=== PATIENT | male | born 1970 ===

== ENCOUNTER → 2021-03-11 | Outpatient (CLI) | payer OTHER ==
[~2021-03-11] MED LIST: ACET15SO6 AS; CETI10TA16 PO; CETI5TAB4 PO; CYCL5TAB PO; DIVA-53 PO; GABA-585 PO; GLEC1TAB PO; MELO15TA23 PO; NYST15CR2 TP
--- NOTE | 2021-03-11 08:35 | PDOC1 ---
INITIAL PAIN CONSULT DATE OF SERVICE: DOS: DATE: 03/11/21 TIME: 08:28 CHIEF COMPLAINT: Chief Complaint: Low back and left lower extremity pain HISTORY OF PRESENT ILLNESS: 51-year-old male presents history of pain low back left lower extremity status post lumbar laminectomy 2015 which reports the pain was reduced but never completely resolved has had pain since that time in the low back left lower extremity posterior gluteus posterior thigh lateral thigh anterior thigh medial thigh as well as the posterior calf to the ankle but not into the foot patient reports is worse with walking standing changing positions better with sitting or laying down but wakes him up from sleep about 3-4 times at night. Patient reports it does not affect his bowel bladder control does affect his ability to walk and he has been limping favoring his left lower extremity. Patient is active currently in custody and reports that it does affect his daily activities his work assignments as well because of the walking with his left hand patient does not use any assistive device such as canes or crutches at this time. Patient did have physical therapy in 2015 and 2014 just before the surgery he had a MRI scan from that time as well showing a large herniation at L4-5 and then plain films dated October 12, 2019 showing significant narrowing at the L4-5 level worsened compared to prior exam with moderate narrowing L2-3 and L3-4 levels with mild to moderate narrowing at the remaining levels as well. Patient rates his disability rating 0-10 10 being the worst as a 5 with him home responsibilities and social activity 8 with recreation and occupation 5 with sexual behavior to with self-care and 0 with life support activities. Patient scribes pain is constant in the back aching and sharp shooting with numbness and tingling in the left leg as described in cramping aching low back as well. PAST MEDICAL HISTORY: PMH: Arthritis, hearing loss, hepatitis PREVIOUS SURGERIES: Past Surgical Hx: Lumbar laminectomy 2016 CURRENT MEDICATIONS: Current Meds: Active Scripts Medications Dose Route/Sig Max Daily Dose Days Date Category Cetirizine Hcl 5 Mg Tab.chew 5 Mg PO DAILY 03/11/21 Reported Gabapentin (Gabapentin) 100 Mg Capsule 200 Mg PO TID 03/11/21 Reported Nystatin-Triamcinolone Cream (Nystatin/Triamcin) 15 Gm Cream..[address]. 1 Rd TP BID 03/11/21 Reported Cyclobenzaprine Hcl 5 Mg Tablet 5 Mg PO TID 03/11/21 Reported Cetirizine Hcl 10 Mg Tablet 1 Tab PO DAILY 03/11/21 Reported Acetic Acid 15 Ml Solution 4 Drop BID 7 03/11/21 Reported Mavyret 100-40 mg Tablet (Glecaprevir/Pibrentasvir) 1 Each Tablet 1 Each PO TID 03/11/21 Reported Divalproex Sodium 500 Mg Tablet.dr 250 Mg PO DAILY 03/11/21 Reported Meloxicam 15 Mg Tablet 1 Tab PO DAILY 30 03/11/21 Reported ALLERGIES; Allergies: Coded Allergies: No Known Drug Allergies (Unverified , 03/11/21) FAMILY HISTORY: Family Hx: No major medical problems that he is aware of SOCIAL HISTORY: Social Hx: Patient is nondrug alcohol does not smoke not use any illegal illicit recreational drugs is again is in custody currently REVIEW OF SYSTEMS: ROS: Positive for those items mentioned in history of present illness, all systems are reviewed, otherwise negative ,and are complete full and well-documented on patient's chart. PHYSICAL EXAM: VS: Blood pressure is 137/82 pulse 71 respirations 18 temperature 98.2 F height is 6 foot 1 inch, weight is 233 pounds PE: PHYSICAL EXAMINATION: GENERAL: The patient is awake, alert, oriented, appropriate, very pleasant demeanor HEENT: Shows normocephalic, atraumatic. Extraocular movements are intact and symmetrical. Patient wearing eyeglasses. Oral cavity: Mucous membranes moist and pink. Dentition is intact. NECK: Shows anterior throat supple without palpable lymphadenopathy noted. Swallow reflex symmetrical. CHEST: Shows normal on inspection. Breath sounds are clear bilaterally, no rales rhonchi wheezes auscultated. HEART: Shows S1, S2 clear. No murmurs auscultated. ABDOMEN: Soft, nontender, nondistended, obese. No palpable organomegaly is noted. No rebound or guarding demonstrated. BACK: Shows spine grossly in the midline. Normal-appearing cervical lordotic curvature. There is slightly increased thoracic kyphosis, some minor flattening of the lumbar lordotic curvature. Well-healed surgical scars noted in the midline. Lumbar paraspinous muscles show symmetrical on inspection, on palpation shows some moderate tenderness diffusely throughout the upper, middle and lower distribution of the paraspinous muscles bilaterally and also into the lower thoracic paraspinous musculature, firm and tender, but without specific trigger points, without radiation of pain. The patient has good rotational motion of the lumbar spine, both laterally as well as extension and flexion without significant difficulty. No tenderness over the spinous processes, sacrum or sacroiliac regions. EXTREMITIES: Lower extremities show deep tendon reflexes 1+ in the patellar and tendo calcaneus tendons. Motor exam is 5 on a scale of 5 with right dorsiflexion, extension, quadriceps and hamstring flexion and 4/5 on the left. Peripheral pulses are 1+ posterior tibial. No peripheral edema is noted bilaterally. Lower extremities are warm and dry to touch, equal in color and appearance. Straight leg raise noted to be negative on the right, left side is positive at approximately 35 degrees decreased with knee flexion. Gaenslen's and Eusebio's maneuvers are negative bilaterally as well. The patient is able to stand, stand on his toes has difficulty putting all his weight on his left foot and does have a slight favoring gait favoring the left lower extremity without using assistive devices to ambulate. SKIN: Shows warm and dry, good turgor. No edema. No sores, rashes or bruising throughout. IMPRESSION: Impression: 51-year-old male with proximate 5-year history status post lumbar laminectomy L4-5 with radicular pain persistent and partial foot drop on the left. MRI scan lumbar spine as noted Arthritis History of hepatitis Plan: Options discussed with the patient, including medical management continued physical therapy as well as interventional techniques. Patient would like to pursue interventional techniques. We discussed a lumbar transforaminal epidural injection using descriptions as well as anatomical models to describe the procedure. Patient is interested and would like to pursue this. We will wait for preauthorization with patient's insurance provider and have him return for a left-sided L4-5 level transforaminal injection with fluoroscopic guidance at that time. In the meantime, patient will continue with oral analgesics as well as anti-inflammatories and stretching strengthening exercises as currently. MARC LAYNE MD March 11, 2021 08:35
== END | disposition home or self-care (01) ==
LOC: PNCL 07:46 → EEVIPCON 08:00
PROVIDERS: ATTEND Anesthesiology
DX: M54.5 Low back pain (principal); M79.605 Pain in left leg; M19.90 Unspecified osteoarthritis, unspecified site; Z79.899 Other long term (current) drug therapy; Z98.890 Other specified postprocedural states
CPT/HCPCS: 99205; G0463

== ENCOUNTER → 2021-10-01 | Outpatient (CLI) | payer OTHER ==
[~2021-10-01] MED LIST changes: +OMEP20TA63 PO; +TAMS0.4C97 PO
--- NOTE | 2021-10-01 08:04 | PDOC ---
Progress Note - Pain Clinic Date of Service: DOS: DATE: 10/01/21 TIME: 07:58 Diagnosis: Dx: Lumbar radiculopathy lumbar degenerative disease lumbar postlaminectomy syndrome History or Present Illness: HPI: 51-year-old male status post initial evaluation March 11, 2021 returning now with similar complaints in the low back and left lower extremity patient reports his pain is getting worse in the left side posterior gluteus posterior thigh lateral thigh anterior thigh medial thigh medial lower leg and into the posterior calf as well with some foot drop on the left side with walking patient reports it is constant shooting throbbing stabbing tingling with numbness in the leg aching and cramping in the back as well worse with walking standing changing positions wakes him from sleep least 2-6 times a night does not affect his bowel bladder control does affect his ability walk is not using assistive devices currently patient is had physical therapy in the past which was helpful but only very temporarily patient has been doing some traction as well which is helpful and doing some stretching strengthening on his own patient reports his most noticeable with bending down picking up items and trying to stand back up also with standing and walking becoming more more difficult and uncomfortable. Patient reports no loss of motor function with significant fatigability the left leg as well as foot drop on the left side with walking patient rates disability rating 0-10 10 being the worst is a 6 with family home responsibilities social activity sexual behavior 7 with recreation and occupation for self-care and 0 with life support activities except for sleeping. Patient reports no bowel or bladder incontinence Physical Exam: VS: Blood pressure is 129/87 pulse 76 respirations 16 temperature 98.2 F height is 6 foot 2 inches weight is 235 pounds. PE: PHYSICAL EXAMINATION: GENERAL: The patient is awake, alert, oriented, appropriate, very pleasant in demeanor HEENT: Shows normocephalic, atraumatic. Extraocular movements are intact and symmetrical. Oral cavity: Mucous membranes moist and pink. Dentition is intact. NECK: Shows anterior throat supple without palpable lymphadenopathy noted. Swallow reflex symmetrical. CHEST: Shows normal on inspection. Breath sounds are clear bilaterally, no rales or rhonchi. HEART: Shows S1, S2 clear. No murmurs auscultated. ABDOMEN: Soft, nontender, nondistended, obese. No palpable organomegaly is noted. BACK: Shows spine grossly in the midline. Normal-appearing cervical lordotic curvature. There is slightly increased thoracic kyphosis, some minor flattening of the lumbar lordotic curvature. Lumbar paraspinous muscles show symmetrical on inspection, on palpation shows some moderate tenderness diffusely throughout the upper, middle and lower distribution of the paraspinous muscles, but without specific trigger points, without radiation of pain. The patient has good rotational motion of the lumbar spine, both laterally as well as extension and flexion without significant difficulty. No tenderness over the spinous processes, sacrum or sacroiliac regions. EXTREMITIES: Lower extremities show deep tendon reflexes 1+ in the patellar and tendo calcaneus tendons. Motor exam is 5 on a scale of 5 with right dorsiflexi on, extension, quadriceps and hamstring flexion and 4/5 on the left with significant foot drop with attempted dorsi extension on the left side. Peripheral pulses are 1+ posterior tibial. No peripheral edema is noted bilaterally. Lower extremities are warm and dry to touch, equal in color and appearance. SKIN: Shows warm and dry, good turgor. No edema. No sores, rashes or bruising throughout. Procedure: Procedure: Options were discussed with the patient. Patient's old chart was reviewed his current medication regimen updated current review of systems updated today as well. We will preauthorize patient for lumbar epidural steroid injection as he has significant clinical radiculopathy in the L4-L5 dermatomal distribution on the left with significant foot drop as well. In the meantime, patient will continue with stretching strength exercises walking as tolerated. Once approved, patient return to clinic for left L4-5 lumbar epidural steroid injection with fluoroscopic guidance. Medication Injected: Med Injected: None Condition at Discharge: Condition at Discharge: Condition at discharge is stable. MARC LAYNE MD Oct 01, 2021 08:04
== END | disposition home or self-care (01) ==
LOC: PNCL 07:26
PROVIDERS: ATTEND Anesthesiology
DX: M51.16 Intervertebral disc disorders with radiculopathy, lumbar region (principal); M96.1 Postlaminectomy syndrome, not elsewhere classified; Z79.899 Other long term (current) drug therapy
CPT/HCPCS: 99212; G0463